=== PATIENT | female | born 1945 | race Caucasian/White ===

== ENCOUNTER 2018-12-17 08:42 | Emergency (ER) | payer MEDICARE, OTHER ==
[2018-12-17 08:49] VITALS: BP 149/69; PULSE 60
--- NOTE | 2018-12-17 09:10 | XR ---
EXAMINATION TYPE: XR knee complete LT DATE OF EXAM: 12/17/2018 CLINICAL HISTORY: pain TECHNIQUE: Three views of the left knee are obtained. COMPARISON: None. FINDINGS: There is no acute fracture/dislocation. The tri-compartment joint spaces appear within no rmal limits. The overlying soft tissue appears unremarkable. IMPRESSION: There is no acute fracture or dislocation ICD 10 NO FRACTURE, INITIAL EVALUATION
[2018-12-17 09:27] VITALS: RESP 20; TEMP 97.9
--- NOTE | 2018-12-17 09:30 | ED ---
Fall HPI - General Chief Complaint: Fall Stated Complaint: fall, lt knee pain Time Seen by Provider: 12/17/18 08:51 Source: patient, RN notes reviewed Mode of arrival: wheelchair Limitations: no limitations - History of Present Illness Initial Comments: 73-year-old female presents emergency Department chief complaint of left knee pain. Patient states that she was working in her yard raking leaves and states that she slipped falling onto her left knee. Patient states she did twisted. Patient states that it became more painful throughout the night and more swollen. Patient states she can move it but states that hurts to ambulate. No head injury no loss consciousness no other injuries. - Related Data Allergies Allergy/AdvReac Type Severity Reaction Status Date / Time No Known Allergies Allergy Verified 12/17/18 08:49 Review of Systems ROS Statement: Those systems with pertinent positive or pertinent negative responses have been documented in the HPI. ROS Other: All systems not noted in ROS Statement are negative. Past Medical History Past Medical History: Syncope History of Any Multi-Drug Resistant Organisms: None Reported Past Surgical History: Pacemaker Additional Past Surgical History / Comment(s): thyroid surgery Past Psychological History: No Psychological Hx Reported Smoking Status: Never smoker Past Alcohol Use History: Occasional Past Drug Use History: None Reported General Exam Limitations: no limitations General appearance: alert, in no apparent distress Head exam: Present: atraumatic, normocephalic, normal inspection Eye exam: Present: normal appearance, PERRL, EOMI. Absent: scleral icterus, conjunctival injection, periorbital swelling Respiratory exam: Present: normal lung sounds bilaterally. Absent: respiratory distress, wheezes, rales, rhonchi, stridor Cardiovascular Exam: Present: regular rate, normal rhythm, normal heart sounds. Absent: systolic murmur, diastolic murmur, rubs, gallop, clicks Extremities exam: Present: other (Left knee there is mild swelling, ecchymosis noted there is no laxity full range of motion neurovascular intact joint above and below within normal limits.) Course Vital Signs 12/17/18 12/17/18 08:46 09:24 Temperature 97.6 F 97.9 F Pulse Rate 60 Respiratory 18 20 Rate Blood Pressure 149/69 O2 Sat by Pulse 100 Oximetry Medical Decision Making - Medical Decision Making Left knee x-rays unremarkable there are no acute fractures no joint effusion no major arthritic changes. Patient has left knee sprain, there is mild swelling associated with sprain, causing pain. Patient we discharged with follow-up PCP orthopedics. Disposition Clinical Impression: Fall, Left knee sprain Disposition: HOME SELF-CARE Condition: Stable Instructions (If sedation given, give patient instructions): Knee Sprain (ED) Additional Instructions: Please return to the Emergency Department if symptoms worsen or any other concerns. Is patient prescribed a controlled substance at d/c from ED?: No Referrals: Hermes Arreola MD [Primary Care Provider] - 1-2 days Clarence Middleton MD [Medical Doctor] - 1-2 days Time of Disposition: 09:30
== END 2018-12-17 09:54 | disposition home or self-care (01) ==
LOC: EC 08:42
DX: S83.92XA Sprain of unspecified site of left knee, initial encounter (principal); Z95.0 Presence of cardiac pacemaker; W01.0XXA Fall on same level from slipping, tripping and stumbling without subsequent striking against object, initial encounter; Y92.096 Garden or yard of other non-institutional residence as the place of occurrence of the external cause
CPT/HCPCS: 99283